=== PATIENT | female | born 1995 | race Caucasian/White ===

== ENCOUNTER 2018-09-19 20:51 | Emergency (ER) | payer SELFPAY ==
[~2018-09-19] VITALS: Ht 167.6 cm; Wt 114.0 kg
[2018-09-19] MEDS ORDERED: KETOROLAC 30MG/ML VIAL IV STA (21:38)
[2018-09-19] MEDS ORDERED: SODIUM CHLORIDE 0.9% 1,000 ML IV ONE (21:38)
[2018-09-19 22:19] LABS: BASOPHILS % 0.5 % (0.0-2.0); EOSINOPHILS % 2.1 % (0.0-5.0); HEMATOCRIT. 38.4 % (36.0-48.0); HEMOGLOBIN. 12.8 g/dL (12.0-16.0); LYMPHOCYTES % 38.5 % (20.0-50.0); MEAN CORPUSCULAR HEMOGLOBIN 24.2 pg (28.0-32.0); MEAN CORPUSCULAR VOLUME 72.8 fL (81.0-99.0); MEAN PLATELET VOLUME 9.3 fl (7.4-10.4); MONOCYTES % 6.4 % (2.0-8.0); NEUTROPHILS % 52.5 % (40.0-76.0); PLATELET 224 x1000/uL (130-400); RED BLOOD CELL COUNT 5.28 mill/uL (4.2-5.4); RED CELL DISTRIBUTION WIDTH 14.7 % (11.6-14.6)
[2018-09-19 22:25] LABS: CHLORIDE 102 mEq/L (98-107)
[2018-09-19] MEDS: POTASSIUM CHLORIDE 20MEQ TABLET SR PO NR ×2 (22:48→23:01)
[2018-09-19 23:01] VITALS: BP 152/97
== END 2018-09-19 23:04 | disposition home or self-care (01) ==
LOC: ER 20:51
DX: R07.89 Other chest pain (principal); R73.9 Hyperglycemia, unspecified
CPT/HCPCS: 36415; 71045; 80053; 81025; 84484; 85025; 96361; 96374; 99284; J1885; J7030; Z7610

== ENCOUNTER 2020-12-09 16:52 | Inpatient (IN) | payer MEDICAID ==
[~2020-12-09] VITALS: Ht 167.6 cm; Wt 116.1 kg
[2020-12-09] MEDS ORDERED: MAGNESIUM/ALUMINUM HYDROXIDE/SIMETHICONE 30ML UDC PO STA (17:12)
[2020-12-09] MEDS ORDERED: ONDANSETRON 4MG ODT PO STA (17:12)
[2020-12-09 18:27] LABS: BASOPHILS % 0.4 % (0.0-2.0); EOSINOPHILS % 0.8 % (0.0-5.0); HEMATOCRIT. 41.8 % (36.0-48.0); HEMOGLOBIN. 14.1 g/dL (12.0-16.0); LYMPHOCYTES % 19.7 % (20.0-50.0); MEAN CORPUSCULAR HEMOGLOBIN 24.7 pg (28.0-32.0); MEAN CORPUSCULAR VOLUME 73.1 fL (81.0-99.0); MEAN PLATELET VOLUME 9.1 fl (7.4-10.4); MONOCYTES % 4.8 % (2.0-8.0); NEUTROPHILS % 74.3 % (40.0-76.0); PLATELET 258 x1000/uL (130-400); RED BLOOD CELL COUNT 5.72 mill/uL (4.2-5.4); RED CELL DISTRIBUTION WIDTH 14.3 % (11.6-14.6)
[2020-12-09 18:32] LABS: CHLORIDE 101 mEq/L (98-107)
[2020-12-09 18:35] LABS: PROTHROMBIN TIME 10.4 sec (9.6-11.0)
[2020-12-09 18:36] LABS: HCG SCREEN NEGATIVE
[2020-12-09] MEDS ORDERED: SODIUM CHLORIDE 0.9% 1,000 ML IV ONE (20:00)
[2020-12-10] MEDS ORDERED: ONDANSETRON HCL 4MG/2ML INJ IV PRN (08:30)
[2020-12-10] MEDS ORDERED: ACETAMINOPHEN 325MG TABLET PO PRN (08:30)
[2020-12-10 10:32] VITALS: BP 147/96
[2020-12-10 12:00] VITALS: BP 128/84
[2020-12-10] MEDS: OMEPRAZOLE 20MG CAPSULE EXTENDED RELEASE PO SCH (12:04)
[2020-12-10] MEDS ORDERED: OMEP20TA2 MT (15:09)
[2020-12-10 16:00] VITALS: BP 141/98
[2020-12-10 18:47] LABS: CLARITY URINE CLEAR (CLEAR); COLOR URINE YELLOW (YELLOW); KETONES URINE TRACE (NEGATIVE); LEUKOCYTE ESTERASE URINE NEGATIVE (NEGATIVE); NITRITE URINE NEGATIVE (NEGATIVE); OCCULT BLOOD URINE NEGATIVE (NEGATIVE); PROTEIN URINE 1+ (NEGATIVE); UROBILINOGEN URINE 0.2 E.U./dL (0.2-1.0)
[2020-12-10 20:00] VITALS: BP 134/75
[2020-12-11] VITALS: BP 118/78
[2020-12-11 04:00] VITALS: BP 122/81
[2020-12-11] MEDS: OMEPRAZOLE 20MG CAPSULE EXTENDED RELEASE PO SCH (06:28)
[2020-12-11 08:00] VITALS: BP 123/76
[2020-12-11] MEDS ORDERED: DEXTROSE 50% WATER 50ML SYRINGE IV PRN (10:00)
[2020-12-11] MEDS: METOCLOPRAMIDE HCL 10MG/2ML VIAL IV SCH ×3 (12:00→23:20)
[2020-12-11] MEDS: BLOOD SUGAR DIAGNOSTIC STRIP TEST SCH ×3 (12:42→21:00)
[2020-12-11] MEDS ORDERED: INSULIN GLARGINE UD 100 UNITS/ML SYR SUBCUT SCH (13:00)
[2020-12-11] MEDS: INSULIN LISPRO 100 UNITS/ML SUBCUT SCH ×3 (13:03→23:19)
[2020-12-11 20:00] VITALS: BP 130/81
[2020-12-12] VITALS: BP 111/67
[2020-12-12 04:00] VITALS: BP 106/61
[2020-12-12] MEDS: METOCLOPRAMIDE HCL 10MG/2ML VIAL IV SCH ×2 (05:21→12:33)
[2020-12-12] MEDS: BLOOD SUGAR DIAGNOSTIC STRIP TEST SCH ×2 (06:18→12:38)
[2020-12-12] MEDS: OMEPRAZOLE 20MG CAPSULE EXTENDED RELEASE PO SCH (06:55)
[2020-12-12] MEDS: INSULIN LISPRO 100 UNITS/ML SUBCUT SCH ×2 (06:56→12:37)
[2020-12-12 08:00] VITALS: BP 141/98
[2020-12-12] MEDS ORDERED: INSULIN GLARGINE UD 100 UNITS/ML SYR SUBCUT NR (12:00)
[2020-12-12 12:46] VITALS: BP 141/98
== END 2020-12-12 13:05 | disposition home or self-care (01) | DRG 48 ==
LOC: ER 16:52 → MICUSO 12-10 00:40 → EDBEDREQSVC 12-10 00:46 → EDBEDREQDT 12-10 00:46 → EDBEDREQ 12-10 00:46 → EDBEDREQTM 12-10 00:46 → 6EST 12-10 08:30
PROVIDERS: ADMIT Internal Medicine; ATTEND Internal Medicine
DX: E11.43 Type 2 diabetes mellitus with diabetic autonomic (poly)neuropathy (principal); E87.1 Hypo-osmolality and hyponatremia; K21.9 Gastro-esophageal reflux disease without esophagitis; E11.9 Type 2 diabetes mellitus without complications; E66.9 Obesity, unspecified; K31.84 Gastroparesis
CPT/HCPCS: 36415; 71045; 76700; 80053; 81003; 82962; 83036; 83605; 84703; 85025; 99285; J1815; J2765; J7030; Q0162